=== PATIENT | male | born 1995 | race Caucasian/White ===

== ENCOUNTER 2024-04-10 14:52 | Outpatient (AMB) | payer BC, SELFPAY ==
--- NOTE | 2024-04-10 15:05 | MHC.PC.OV ---
Vital Signs 04/10/24 15:07 Height 6 ft Weight 317 lb BMI 43.0 BP 134/80 Blood Pressure Location Rt brachial Position Sitting Pulse 97 Pulse Source Pulse Oximeter Pulse Oximetry (%) 97 Oxygen Delivery Method Room Air Intake Visit Reasons: Establishing care with new doctor, encounter for Intake Note: Pt is here today as a New Patient to [facility] care Allergies pollen Adverse Reaction (Uncoded 04/10/24 15:23) stuffy nose Medication List - Last Reconciled 04/10/24 by ANABEL Stephenson No Known Home Meds Tobacco use date assessed: 04/10/24 Dental Screening Dental Screen Date: 04/10/24 Did you have a dental visit in the last 12 months?: No Was dental information given to patient?: Patient has dentist HPI HPI Comments History of Present Illness Details Patient is a 29-year-old male who I am meeting for the 1st time. Will obtain records from previous provider. Patient has a past medical history significant for ADHD. He is currently in the process of testing and establishing care with a new psychiatrist. Will draw full panel fasting labs. [facility] Medical History (Updated 04/10/24 @ 15:52 by ANABEL Stephenson) ADHD Surgical History (Updated 04/10/24 @ 15:26 by ANABEL Stephenson) [place] teeth extracted Family History Maternal Grandfather Prostate cancer Social History Housing: House Alcohol intake: current Alcohol intake frequency: holidays/special occasions only Patient Tobacco Use Status: Never used Tobacco e-Cigarette/Vaping Use: Never Used service: No Current occupational status: employed Cognitive needs: No Hearing needs: No Vision needs: Yes Questionnaire PHQ-9 Over the last 2 weeks, how often have you been bothered by any of the following problems? 1. Little interest or pleasure in doing things: not at all 2. Feeling down, depressed, or hopeless: not at all 3. Trouble falling or staying asleep, or sleeping too much: not at all 4. Feeling tired or having little energy: not at all 5. Poor appetite or overeating: not at all 6. Feeling bad about yourself - or that you are a failure or have let yourself or your family down: not at all 7. Trouble concentrating on things, such as reading the newspaper or watching television: not at all 8. Moving or speaking so slowly that other people could have noticed. Or the opposite - being so fidgety or restless that you have been moving around a lot more than usual: not at all 9. Thoughts that you would be better off or of hurting yourself in some way: not at all Total score: 0 Depression Screening Interpretation: Negative Depression Screening Done: Yes 46930 - PHQ-9 Billing: Yes Source: Developed by Drs. Kyler Umanzor, Naye Soliman, Enrique Braga and colleagues, with an educational clark from [employer]. Thrive Questionnaire Date Thrive assessed: 04/10/24 I am a: Patient What is your living situation today?: I have a steady place to live Within the past 12 months, did the food you bought not last and you didn't have the money to get more?: Never true Within the past 12 months, did you worry whether your food would run out before you got money to buy more?: Never true Do you have trouble paying for medicines?: No Do you have trouble getting transportation to medical appointments?: No Do you have trouble paying your heating and electricity bill?: No Do you have trouble taking care of your child, family member or friend?: No Do you have trouble with day-to-day activities such as bathing, preparing meals, shopping, managing finances, etc.?: No Are you currently unemployed and looking for a job?: No Are you interested in more education?: No THRIVE Score: 0 AUDIT C Alcohol Use Questionnaire (AUDIT-C) 1. How often do you have a drink containing alcohol?: Monthly or less 2. How many drinks containing alcohol do you have on a typical day when you are drinking?: 1 or 2 3. How often do you have six or more drinks on one occasion?: Never Total Score: 1 LESLYE-7 AMB Questionnaire LESLYE-7 Date LESLYE - 7 assessed: 04/10/24 Feeling nervous, anxious, or on edge: 0 = Not at all Not being able to stop or control worryin = Not at all Worrying too much about different things: 0 = Not at all Trouble relaxin = Not at all Being so restless that it is hard to sit still: 0 = Not at all Becoming easily annoyed or irritable: 0 = Not at all Feeling afraid as if something awful might happen: 0 = Not at all Total LESLYE-7 score (0-4 normal; 5-9 mild; 10-14 moderate; 15-21 severe): 0 Source: Developed by Drs. Kyler Umanzor, Naye Soliman, Enrique Braga and colleagues, with an educational clark from [employer]. LESLYE-7 Assessment Billing LESLYE-7 Assessment Tool: LESLYE-7 Assessment 45590 Review of Systems Const All systems reviewed & are unremarkable except as noted in HPI and below Denies chills and Denies fever(s) ENT Denies dizziness Card Denies chest pain and Denies dyspnea Resp Denies cough, Denies dyspnea and Denies wheezing GI Denies diarrhea, Denies nausea and Denies vomiting Neuro Denies dizziness Psych Denies homicidal ideation and Denies suicidal ideation Aller/Immun Denies wheezing Physical exam (Primary Care) Vital Signs: Last Vital Signs Pulse 97 04/10/24 15:07 BP 134/80 04/10/24 15:07 Pulse Ox 97 04/10/24 15:07 Oxygen Delivery Method Room Air 04/10/24 15:07 Care Plan Goal for BP management: Patient will take blood pressure measurements at home Next steps: Patient has follow-up in 1 month will return with blood pressure measurements BMI result Body Mass Index 43.0 BMI Assessment/Plan discussion: High Tobacco/Smoking Status: Tobacco use Status Tobacco use date assessed 04/10/24 04/10/24 15:10 Patient Tobacco Use Status Never used Tobacco 04/10/24 15:28 e-Cigarette/Vaping Use Never Used 04/10/24 15:28 PHQ-9: PHQ-9 Score PHQ-9: Total score 0 04/10/24 15:32 Depression Screening Interpretation: Negative Thrive Assessment: Date of Thrive Assessment Date Thrive assessed 04/10/24 04/10/24 15:13 Const General: cooperative and no acute distress Nutritional Appearance: overweight Orientation/consciousness: patient oriented x3 Limitations: no limitations HENMT Head: Yes normal to inspection Eyes General: appearance normal, both eyes and all related structures Resp Auscultation: clear to auscultation bilaterally Cardio Rate: regular rate Rhythm: regular rhythm Heart sounds: S1 normal heart sound present and S2 normal heart sound present Neuro General: patient oriented x3 Extrem Right upper extremity: shoulder/upper arm Details: crepitus Psych Affect: normal affect Attitude: cooperative Thought process: Normal thought process present Thought content: Normal thought content present Insight: Good insight present (Psych) Judgement: Good judgement present (Psych) Assessment and Plan Assessment & Plan (1) Crepitus of right shoulder joint: Comment: Will order patient x-ray. Code(s): M24.811 - Other specific joint derangements of right shoulder, not elsewhere classified (2) ADHD: Comment: Patient has upcoming meeting with Psychiatry and evaluation through testing center for Code(s): F90.9 - Attention-deficit hyperactivity disorder, unspecified type Qualifiers: Attention deficit-hyperactivity disorder type: unspecified Qualified Code(s): F90.9 - Attention-deficit hyperactivity disorder, unspecified type Plan: Patient will follow up in 1 month. (3) Encounter to establish care with new doctor: Code(s): Z76.89 - Persons encountering health services in other specified circumstances Orders: Orders Vitamin D 25-OH (D2 and D3) 04/10/24 Z13.21 - Encounter for screening for nutritional disorder UA CC w/rflx Micro + Cult 04/10/24 Z13.89 - Encounter for screening for other disorder XR shoulder RT min 2V 04/10/24 M24.811 - Other specific joint derangements of right shoulder, not elsewhere classified Vitamin B6 04/10/24 Z13.21 - Encounter for screening for nutritional disorder Vitamin B12 04/10/24 Z13.21 - Encounter for screening for nutritional disorder TSH reflex Free T4 04/10/24 Z13.29 - Encounter for screening for other suspected endocrine disorder Lipid Panel 04/10/24 Z13.220 - Encounter for screening for lipoid disorders Complete Blood Count Auto Diff 04/10/24 Z13.0 - Encounter for screening for diseases of the blood and blood-forming organs and certain disorders involving the immune mechanism Comprehensive Met. Panel 04/10/24 Z91.89 - Other specified personal risk factors, not elsewhere classified Coding Level of Care Code New Pt Level 3 (68140) Diagnoses Crepitus of right shoulder joint M24.811 Attention deficit hyperactivity disorder (ADHD), unspecified ADHD type F90.9 Attention deficit-hyperactivity disorder type: unspecified Encounter to establish care with new doctor Z76.89 Additional Codes LESLYE-7 Assessment Billing - LESLYE-7 Assessment Tool: LESLYE-7 Assessment 62076 ([id number]) Time Spent (min) 26
[2024-04-10 15:07] VITALS: BP 134/80; PULSE 97; O2SAT 97; BMI 43.0
== END 2024-04-10 15:44 | disposition home or self-care (01) ==
PROVIDERS: PCP Nurse Practitioner Primary Care; Visit Provider Nurse Practitioner Primary Care
DX: M24.811 Other specific joint derangements of right shoulder, not elsewhere classified (principal); F90.9 Attention-deficit hyperactivity disorder, unspecified type; Z76.89 Persons encountering health services in other specified circumstances
CPT/HCPCS: 99203

== ENCOUNTER 2024-05-06 12:54 | Outpatient (REF) | payer BC, SELFPAY ==
[2024-05-06 16:01] LABS: MANUAL DIFF FLAG NO
[2024-05-06 16:03] LABS: Appearance Urine Turbid; Color Urine Yellow; Glucose Urine UA Negative (Negative); Leukocyte Esterase Urine Negative (Negative); Nitrite Urine Negative (Negative); Urine Blood Negative (Negative); Urine Ketones Negative (Negative); Urine Protein Negative (Neg-Trace)
[2024-05-06 16:13] LABS: Basophils Absolute Auto 0.1 X10*3/uL (0.0-0.2); Basophils Percent Auto 0.6 % (0-2); Eosinophils Absolute Auto 0.9 X10*3/uL (0.0-0.4); Eosinophils Percent Auto 7.7 % (0-4); Hematocrit 44.4 % (42.0-52.0); Hemoglobin 14.8 g/dl (14.0-18.0); Imm Gran Abs Auto 0.06 X10*3/uL (0.00-0.03); Imm Gran Pct Auto 0.5 % (0.0-0.4); Lymphocytes Absolute Auto 2.8 X10*3/uL (1.2-4.9); Lymphocytes Percent Auto 25.2 % (20-40); Mean Corpuscular HGB Conc 33.3 g/dl (31.0-36.0); Mean Corpuscular Hemoglobin 28.7 pg (27.0-33.0); Mean Platelet Volume 10.9 fL (9.4-12.4); Monocytes Absolute Auto 0.9 X10*3/uL (0.1-1.2); Monocytes Percent Auto 8.3 % (2-11); Neutrophils Absolute Auto 6.4 x10*3/uL (2.0-8.3); Neutrophils Percent Auto 57.7 % (45-73); Platelet Count 333 X10*3/uL (160-400); Red Blood Count 5.16 X10*6/uL (4.60-5.80); Red Cell Distribution Width 12.6 % (11.0-16.0)
[2024-05-06 16:31] LABS: Alanine Aminotransferase 31 U/L (0-40); Albumin Level 4.4 g/dL (3.5-5.0); Alkaline Phosphatase 42 U/L (39-117); Anion Gap 13 (12-20); Aspartate Amino Transferase 24 U/L (5-37); Bilirubin Total 0.6 mg/dL (0.0-1.0); Blood Urea Nitrogen 14 mg/dL (9-16); Calcium 9.3 mg/dL (8.4-10.2); Carbon Dioxide 24 mmol/L (22-29); Chloride 105 mmol/L (96-108); Cholesterol 189 mg/dL (<200); Estimated Glomerular Filt Rate > 60; Glucose Random 86 mg/dL (60-115); HDL Cholesterol 36 mg/dL (>40); LDL Cholesterol Calculated 124 mg/dL (<100); Potassium 4.4 mmol/L (3.3-5.1); Sodium 138 mmol/L (135-145); Total Protein 8.2 g/dL (6.5-8.0); Triglycerides 148 mg/dL (<150)
[2024-05-06 16:48] LABS: TSH reflex Free T4 2.98 uIU/mL (0.32-4.0)
[2024-05-06 17:11] LABS: Vitamin B12 333 pg/mL (200-900)
[2024-05-10 14:58] LABS: Vitamin D 25-OH, D2 <4 ng/mL; Vitamin D 25-OH, D3 10 ng/mL; Vitamin D 25-OH, Total 10 ng/mL (30-100)
[2024-05-11 13:34] LABS: Vitamin B6 7.1 ng/mL (2.1-21.7)
== END 2024-05-06 12:55 | disposition home or self-care (01) ==
LOC: HO.HMGCLDS 12:54
PROVIDERS: PCP Internal Medicine; Visit Provider Nurse Practitioner Primary Care
DX: Z13.21 Encounter for screening for nutritional disorder (principal); Z13.89 Encounter for screening for other disorder; Z13.220 Encounter for screening for lipoid disorders; Z13.29 Encounter for screening for other suspected endocrine disorder; Z13.0 Encounter for screening for diseases of the blood and blood-forming organs and certain disorders involving the immune mechanism; Z91.89 Other specified personal risk factors, not elsewhere classified
CPT/HCPCS: 36415; 80053; 80061; 81003; 82306; 82607; 84207; 84443; 85025

== ENCOUNTER 2024-05-15 15:25 | Outpatient (AMB) | payer BC, SELFPAY ==
--- NOTE | 2024-05-15 15:26 | MHC.PC.OV ---
Vital Signs 05/15/24 15:27 Height 6 ft Weight 317 lb BMI 43.0 BP 116/80 Blood Pressure Location Rt brachial Position Sitting Pulse 66 Pulse Source Pulse Oximeter Pulse Oximetry (%) 98 Oxygen Delivery Method Room Air Intake Visit Reasons: lab follow up Intake Note: pt is here for lab follow up Allergies pollen Adverse Reaction (Uncoded 05/15/24 15:54) stuffy nose Medication List - Last Reconciled 05/15/24 by ANABEL Stephenson meloxicam 15 mg PO DAILY prednisone 40 mg (2 x 20 mg) PO DAILY Tobacco use date assessed: 05/15/24 Dental Screening Dental Screen Date: 04/10/24 HPI HPI Comments History of Present Illness Details Patient is a 29-year-old male in today for a lab follow-up. Recent lab draw revealed the patient is on vitamin-D, he will be instructed to take vitamin D3 2000 units daily and will have this redrawn in 3 months. Patient has also been instructed that he can get vitamin-D from the sunlight, but should be careful not to have over exposure. Should use appropriate sunscreens. Patient was also found to have elevated LDL and reduced HDL. No medication intervention at this time however patient did utilize exercise and improved diet. He can also utilize Marine or oil supplement Patient also has a complaint of right hip pain x2 weeks. Patient states that he was in a long car drive in developed discomfort in his right hip/lower back with pain radiating into his right leg. The pain has gotten progressively better over the past 2 weeks however it is still present. Patient has SI tenderness on physical exam. Will order SI x-ray, will give short course of prednisone and meloxicam. [facility] Medical History ADHD Surgical History [place] teeth extracted Family History Maternal Grandfather Prostate cancer Social History Housing: House Alcohol intake: current Alcohol intake frequency: holidays/special occasions only Patient Tobacco Use Status: Never used Tobacco e-Cigarette/Vaping Use: Never Used service: No Current occupational status: employed Cognitive needs: No Hearing needs: No Vision needs: Yes Questionnaire Thrive Questionnaire Date Thrive assessed: 04/10/24 AUDIT C Alcohol Use Questionnaire (AUDIT-C) 1. How often do you have a drink containing alcohol?: Monthly or less 2. How many drinks containing alcohol do you have on a typical day when you are drinking?: 1 or 2 3. How often do you have six or more drinks on one occasion?: Never Total Score: 1 Score Reviewed/Action Taken: Yes LESLYE-7 AMB Questionnaire LESLYE-7 Date LESLYE - 7 assessed: 04/10/24 Source: Developed by Drs. Kyler Umanzor, Naye Soliman, Enrique Braga and colleagues, with an educational clark from [employer]. Review of Systems Const All systems reviewed & are unremarkable except as noted in HPI and below Physical exam (Primary Care) Vital Signs: Last Vital Signs Pulse 66 05/15/24 15:27 BP 116/80 05/15/24 15:27 Pulse Ox 98 05/15/24 15:27 Oxygen Delivery Method Room Air 05/15/24 15:27 BMI result Body Mass Index 43.0 Tobacco/Smoking Status: Tobacco use Status Tobacco use date assessed 05/15/24 05/15/24 15:32 Patient Tobacco Use Status Never used Tobacco 05/15/24 15:32 e-Cigarette/Vaping Use Never Used 05/15/24 15:32 Thrive Assessment: Date of Thrive Assessment Date Thrive assessed 04/10/24 05/15/24 15:32 Const Other: Appearance: Alert.? Oriented X3.? No acute distress.? Head: Normocephalic, atraumatic, no step-offs or deformities Eyes: Pupils equal, round and reactive to light.? ENT: Pharynx normal.? Neck: Normal inspection.? Neck supple.? CVS: Normal heart rate and rhythm.? Pulses normal.? Respiratory: No respiratory distress.? Breath sounds normal.? Abdomen: Soft and nontender.? Skin: Skin warm and dry.? Normal skin color.? Normal skin turgor.? Extremities: No lower extremity edema.? No calf ttp. 5/5 strength to bilateral upper and lower extremities Back: No midline tenderness, no C-spine tenderness, full range of motion, no CVA tenderness bilaterally. +right SI tenderness. Neuro: Oriented X 3.? No motor deficit.? No sensory deficit. CN 2-12 intact Results Reviewed Results Reviewed: Vit D, 25-OH D2 <4 ng/mL This test was developed and its analytical performance characteristics have been determined by [facility] [place], [place]. It has not been cleared or approved by the U.S. Food and Drug Administration. This assay has been validated pursuant to the CLIA regulations and is used for clinical purposes. THIS TEST WAS PERFORMED AT: [facility]/[address] DONATO DOHERTY MD,PHD Vit D, 25-OH D3 10 ng/mL This test was developed and its analytical performance characteristics have been determined by [facility] [place], [place]. It has not been cleared or approved by the U.S. Food and Drug Administration. This assay has been validated pursuant to the CLIA regulations and is used for clinical purposes. Vit D 25-OH Tot 10 L 30-100 ng/mL Vitamin D, 25-Hydroxy reports concentrations of two common forms, 25-OHD2 and 25-OHD3. 25-OHD3 indicates both endogenous production and supplementation. 25-OHD2 is an indicator of exogenous sources such as diet or supplementation. Therapy is based on measurement of Total 25-OHD, with levels <20 ng/mL indicative of Vitamin D deficiency, while levels between 20 ng/mL and 30 ng/mL suggest insufficiency. Optimal levels are > or = 30 ng/mL. For additional information, please refer to http://education.Grabbed/faq/TTP599 (This link is being provided for informational/ educational purposes only.) Sodium 138 135-145 mmol/L Potassium 4.4 3.3-5.1 mmol/L CL 105 96-108 mmol/L CO2 24 22-29 mmol/L Gap 13 12-20 BUN 14 9-16 mg/dL Creat 0.92 0.5-1.4 mg/dL EGFR > 60 NOTE: For -[place] individuals, multiply the result by 1.210. Chronic Kidney Disease: Estimated GFR < 60 mL/min/1.73m2 Severe Kidney Disease: Estimated GFR < 15 mL/min/1.73m2 Glucose, Random 86 60-115 mg/dL CA 9.3 8.4-10.2 mg/dL Total Bili 0.6 0.0-1.0 mg/dL AST (GOT) 24 5-37 U/L ALT (GPT) 31 0-40 U/L Protein, Total 8.2 H 6.5-8.0 g/dL Alb 4.4 3.5-5.0 g/dL Triglyceride 148 <150 mg/dL Desirable Triglyceride: less than 150 mg/dL Borderline High Triglyceride 150-199 mg/dL High Triglyceride: 200-499 mg/dL Very High Triglyceride: greater than or equal to 5OO mg/dL Cholesterol 189 <200 mg/dL Desirable Cholesterol: less than 200 mg/dL Borderline High Cholesterol: 200-239 mg/dL High Cholesterol: greater than 239 mg/dL LDL Calculated 124 H <100 mg/dL Desirable LDL: less than 100 mg/dL Near Optimal/Above Optimal LDL: 110-129 mg/dL Borderline High LDL: 130-159 mg/dL High LDL: 160-189 mg/dL Very High LDL: greater than or equal to 190 mg/dL HDL 36 L >40 mg/dL Desirable HDL: greater than 40 mg/dL Note: This HDL assay may give artificially low results in patients with liver disease. Alk Phos 42 39-117 U/L TSH 2.98 0.32-4.0 uIU/mL Assessment and Plan Assessment & Plan (1) Chronic SI joint pain: Comment: Patient will be given meloxicam and prednisone. Will also order SI x-ray. Patient has been instructed on the side effects of these medications and take them properly. Patient has been educated he will likely need physical therapy if problem persists. Code(s): M53.3 - Sacrococcygeal disorders, not elsewhere classified; G89.29 - Other chronic pain (2) Vitamin D deficiency: Comment: Patient has been instructed to take Vitamin D3 2000 units per day for the next three months. Will redraw levels in 3 months. Code(s): E55.9 - Vitamin D deficiency, unspecified (3) Hyperlipidemia: Comment: Patient instructed to improve diet and increase exercise. Can also utilize Marine oil supplement. Code(s): E78.5 - Hyperlipidemia, unspecified Qualifiers: Hyperlipidemia type: unspecified Qualified Code(s): E78.5 - Hyperlipidemia, unspecified Plan: Will follow-up with x-ray results Orders: Orders XR sacroiliac joint 1-2V 05/15/24 G89.29 - Other chronic pain, M53.3 - Sacrococcygeal disorders, not elsewhere classified Medications: New prednisone 40 mg (2 x 20 mg) PO DAILY 10 tabs 0RF meloxicam 15 mg PO DAILY 20 tabs 0RF Coding Level of Care Code Est Pt Level 3 (24825) Diagnoses Chronic SI joint pain M53.3; G89.29 Vitamin D deficiency E55.9 Hyperlipidemia, unspecified hyperlipidemia type E78.5 Hyperlipidemia type: unspecified Time Spent (min) 26
[2024-05-15 15:27] VITALS: BP 116/80; PULSE 66; O2SAT 98; BMI 43.0
== END 2024-05-15 16:03 | disposition home or self-care (01) ==
LOC: HO.HMGC 15:25
PROVIDERS: PCP Internal Medicine; Visit Provider Nurse Practitioner Primary Care
DX: M53.3 Sacrococcygeal disorders, not elsewhere classified (principal); G89.29 Other chronic pain; E55.9 Vitamin D deficiency, unspecified; E78.5 Hyperlipidemia, unspecified
CPT/HCPCS: 99213

== ENCOUNTER 2024-05-16 11:23 | Outpatient (REF) | payer BC, SELFPAY ==
--- NOTE | ~2024-05-16 | XR_ITS ---
EXAMINATION: XR SACROILIAC JOINTS CLINICAL INFORMATION: Sacrococcygeal disorders not otherwise specified COMPARISON: None available. TECHNIQUE: 3 views of the sacroiliac joints FINDINGS: Bone mineralization is normal. Small calcification in the left hemipelvis, possibly vascular. Mild degenerative changes in the bilateral sacroiliac joints with mild hypertrophic change. XR/XR sacroiliac joint 1-2V IMPRESSION: Mild degenerative changes in the bilateral sacroiliac joints.
== END 2024-05-16 11:24 | disposition home or self-care (01) ==
LOC: HO.HMGCX 11:23
PROVIDERS: PCP Internal Medicine; Visit Provider Nurse Practitioner Primary Care
DX: M53.3 Sacrococcygeal disorders, not elsewhere classified (principal); G89.29 Other chronic pain
CPT/HCPCS: 72200

== ENCOUNTER 2024-11-12 11:51 | Outpatient (AMB) | payer BC, SELFPAY ==
--- OUTSIDE RECORDS SUMMARY | 2024-11-12 11:53 | XMS_ITS | Patient Health Record ---
Author Organization [facility] Address [address] [place] [address] Care Team Providers Care Manager Heart Failure Name Role Phone Keaton Peter MD Primary Care Provider Carl Berrios [phone] Allergies Allergen (clinical drug ingredient) Drug/Non Drug Allergy documented on EMR Reaction Allergy Type Onset Date Status Seasonale Unknown Drug Allergy Active Reason For Referral No Information Medications Medication SIG (Take, Route, Frequency, Duration) Notes Start Date End Date Status Augmentin 500-125 MG 1 tablet Orally jacquelyn ry 8 hrs for 10 days Not-Taking Social History Tobacco Use: Social History Observation Description Date Details (start date - stop date) Never Smoker NA - NA Tobacco Use/Smoking Question Answer Notes Are you a: nonsmoker Additional Findings: Tobacco Non-User Current no n-smoker Alcohol Screen Question Answer Notes Did you have a drink containing alcohol in the p ast year? No Points 0 Interpretation Negative Tobacco use other than smoking: Question Answer Notes Are you an other tobacco user? 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
[2024-11-12 12:19] VITALS: BP 110/72; PULSE 95; O2SAT 96; BMI 44.3
--- NOTE | 2024-11-12 12:19 | A.OFFPC_ITS ---
Vital Signs 11/12/24 12:19 Height 6 ft Weight 327 lb BMI 44.3 BP 110/72 Blood Pressure Location Rt brachial Position Sitting Pulse 95 Pulse Source Pulse Oximeter Pulse Oximetry (%) 96 Oxygen Delivery Method Room Air Intake Visit Reasons: 6-8 month follow up/transfer from [facility] Intake Note: Pt is here today for his 6-8mo. f/u/ transfer from [facility]/ c/o ?abscess behind the Rt knee Allergies pollen Adverse Reaction (Uncoded 11/12/24 12:43) stuffy nose Medication List - Last Reconciled 11/12/24 by Leigh Ann Fair MD cholecalciferol (vitamin D3) 50 mcg PO DAILY loratadine (Claritin) 10 mg PO DAILY Tobacco use date assessed: 11/12/24 Dental Screening Dental Screen Date: 04/10/24 Did you have a dental visit in the last 12 months?: Yes Did you have a dental problem in the last 6 months where you did not have access to dental care?: Yes Was dental information given to patient?: Patient has dentist HPI 6-8 month follow up/transfer from [facility] HPI Details 29-year-old male, here to establish care with new PCP and have lesion on the back of his right knee checked. Patient states that he was seen recently at the urgent care clinic and treated for cellulitis in right lower extremity with complete resolution of redness, swelling and pain over site. He however still feels a small lump left behind and would like to get it checked. - has Allergic rhinitis, specifically to pollen, not severe. No medication currently taken besides Claritin. - Weight management: No history of diabe betsy. Gained 10 pounds since April despite diet and exercise efforts. - Vitamin D level noted as 10 ng/mL prev iously. Currently taking vitamin D supplements, approx. 2000 IU daily. [facility] Medical History (Updated 11/14/24 @ 00:11 by Leigh Ann Fair MD) Morbid obesity ADHD Surgical History [place] teeth extracted Family History Maternal Grandfather Prostate cancer Social History Housing: House Alcohol intake: current Alcohol intake frequency: holidays/special occasions only Patient Tobacco Use Status: Never used Tobacco e-Cigarette/Vaping Use: Never Used service: No Current occupational status: employed Cognitive needs: No Hearing needs: No Vision needs: Yes Questionnaire PHQ-9 Over the last 2 weeks, how often have you been bothered by any of the following problems? 1. Little interest or pleasure in doing things: not at all 2. Feeling down, depressed, or hopeless: not at all 3. Trouble falling or staying asleep, or sleeping too much: several days 4. Feeling tired or having little energy: not at all 5. Poor appetite or overeating: not at all 6. Feeling bad about yourself - or that you are a failure or have let yourself or your family down: not at all 7. Trouble concentrating on things, such as reading the newspaper or watching television: not at all 8. Moving or speaking so slowly that other people could have noticed. Or the opposite - being so fidgety or restless that you have been moving around a lot more than usual: not at all 9. Thoughts that you would be better off or of hurting yourself in some way: not at all Total score: 1 Source: Developed by Drs. Kyler Umanzor, Naye Soliman, Enrique Braga and colleagues, with an educational clark from [employer]. Thrive Questionnaire Date Thrive assessed: 11/05/24 I am a: Patient What is your living situation today?: I have a steady place to live Within the past 12 months, did the food you bought not last and you didn't have the money to get more?: Never true Within the past 12 months, did you worry whether your food would run out before you got money to buy more?: Never true Do you have trouble paying for medicines?: No Do you have trouble getting transportation to medical appointments?: No Do you have trouble paying your heating and electricity bill?: No Do you have trouble taking care of your child, family member or friend?: No Do you have trouble with day-to-day activities such as bathing, preparing meals, shopping, managing finances, etc.?: No Are you currently unemployed and looking for a job?: No Are you interested in more education?: Yes Please select the resources that you would like help with: None Currently or been in a relationship where the following occur: No concerns reported THRIVE Score: 0 AUDIT C Alcohol Use Questionnaire (AUDIT-C) 1. How often do you have a drink containing alcohol?: Monthly or less 2. How many drinks containing alcohol do you have on a typical day when you are drinking?: 1 or 2 3. How often do you have six or more drinks on one occasion?: Never Total Score: 1 LESLYE-7 AMB Questionnaire LESLYE-7 Date LESLYE - 7 assessed: 04/10/24 Feeling nervous, anxious, or on edge: 1 = Several days Not being able to stop or control worryin = Not at all Worrying too much about different things: 1 = Several days Trouble relaxin = Not at all Being so restless that it is hard to sit still: 2 = More than half the days Becoming easily annoyed or irritable: 1 = Several days Feeling afraid as if something awful might happen: 0 = Not at all Total LESLYE-7 score (0-4 normal; 5-9 mild; 10-14 moderate; 15-21 severe): 5 Source: Developed by Drs. Kyler Umanzor, Naye Soliman, Enrique Braga and colleagues, with an educational clark from [employer]. Review of Systems Const All systems reviewed & are unremarkable except as noted in HPI and below Physical exam (Primary Care) Vital Signs: Last Vital Signs Pulse 95 11/12/24 12:19 BP 110/72 11/12/24 12:19 Pulse Ox 96 11/12/24 12:19 Oxygen Delivery Method Room Air 11/12/24 12:19 BMI result Body Mass Index 44.3 Tobacco/Smoking Status: Tobacco use Status Tobacco use date assessed 11/12/24 11/12/24 12:21 Patient Tobacco Use Status Never used Tobacco 11/12/24 12:21 e-Cigarette/Vaping Use Never Used 11/12/24 12:21 PHQ-9: PHQ-9 Score PHQ-9: Total score 1 11/12/24 12:53 Thrive Assessment: Date of Thrive Assessment Date Thrive assessed 11/05/24 11/12/24 12:21 Currently or been in a relationship where the following occur: No concerns repor brianna Const General: no acute distress and alert Orientation/consciousness: patient oriented x3 Limitations: no limitations HENMT Mouth: oropharynx normal and moist mucous membranes Eyes General: appearance normal, both eyes and all related structures Neck Neck: Yes full ROM, Yes no lymphadenopathy and Yes supple Resp Effort & Inspection: normal respiratory effort and able to speak in complete sentences Auscultation: clear to auscultation bilaterally Cardio Rate: regular rate Rhythm: regular rhythm Heart sounds: S1 normal heart sound present and S2 normal heart sound present GI Palpation (GI): Soft to palpation, nontender and no masses Auscultation: normal bowel sounds Back/Spine/Pelvis Back: No back tenderness Skin Other: Small firm nontender nodular lesion just above right popliteal fossa, no redness no increased warmth, nontender Neuro General: patient oriented x3, gait normal, tone normal, moves all extremities, Normal light touch and pain sensation and no focal motor deficits Cognition (Neuro): normal cognition Extrem General: Yes full ROM, Yes no joint enlargement, Yes no clubbing, cyanosis or edema and Yes no calf tenderness Psych Appearance: grossly normal and well kempt Mental Status: mental status grossly normal Speech and movement: Normal speech and movement present Affect: normal affect Attitude: cooperative Thought process: Normal thought process present Thought content: Normal thought content present Coding Level of Care Code Est Pt Level 3 (25196) Diagnoses Morbid obesity E66.01 Skin lesion L98.9 Assessment & Plan Assessment & Plan (1) Morbid obesity: Code(s): E66.01 - Morbid (severe) obesity due to excess calories Category: Medical (2) Skin lesion: Code(s): L98.9 - Disorder of the skin and subcutaneous tissue, unspecified Plan I discussed with the patient that the previously inflamed area behind the knee, diagnosed as cellulitis, now appears to be scar tissue without current symptoms. We agreed on continuing to observe for any changes in size or discomfort. For weight management, emphasis on proper insurance consultation for medication coverage was advised, as he is not diabetic and may face coverage challenges. I reiterated the significance of combining any pharmacological intervention with lifestyle modifications. We also discussed correcting his vitamin D deficiency with ongoing supplements. Concerning immunizations, I stressed the need for verifying flu and COVID-19 vaccines and considering a Tdap update given his occupational exposure.
== END 2024-11-12 12:56 | disposition home or self-care (01) ==
PROVIDERS: PCP Internal Medicine; Visit Provider Internal Medicine
DX: L98.9 Disorder of the skin and subcutaneous tissue, unspecified (principal); E66.01 Morbid (severe) obesity due to excess calories; Z68.41 Body mass index [BMI] 40.0-44.9, adult

== ENCOUNTER → 2024-11-12 11:51 | Outpatient (BNVA) | payer BC, SELFPAY | PROVIDERS: PCP Internal Medicine; Visit Provider Internal Medicine ==

== ENCOUNTER 2025-10-07 14:55 | Outpatient (AMB) | payer BC, SELFPAY ==
[2025-10-07 14:59] VITALS: BP 128/86; PULSE 86; TEMP 36.8; O2SAT 96
--- NOTE | 2025-10-07 14:59 | AM.OFFWIN_ITS ---
Intake Vital Signs 10/07/25 14:59 Height 6 ft BP 128/86 Blood Pressure Location Rt brachial Position Sitting Pulse 86 Pulse Source Pulse Oximeter Temp 98.3 F Temp Source Oral Pulse Oximetry (%) 96 Oxygen Delivery Method Room Air Intake Visit Reasons: EP cough, chest discomfort Intake Note: Patient presents c/o cough, SOB x1 week. Patient was treated for walking pneumonia earlier this month & last. Patient Tobacco Use Status: Never used Tobacco Allergies pollen Adverse Reaction (Uncoded 10/07/25 15:03) stuffy nose Medication List - Last Reconciled 10/07/25 by Maki Nunez PA-C atomoxetine 80 mg PO QAM loratadine (Claritin) 10 mg PO DAILY HPI HPI Comments History of Present Illness Details History - The patient is a 30-year-old male pres enting with persistent respiratory symptoms following a previous diagnosis of pneumonia. - The patient initially experienced bhakti re coughing with mucus production and vomiting, leading to an urgent care visit where pneumonia was suspected despite a negative chest x-ray. - The patient was treated with antibioti cs and experienced some improvement. - Upon returning to work, symptoms worse benson, prompting a return to urgent care where the diagnosis was amended to walking pneumonia, and additional treatments including prednisone and an inhaler were prescribed. - The patient reports improvement but no betsy occasional wheezing and coughing, particularly with cold weather and dry air. - The patient denies a history of asthma or COPD and reports no current medication use. - The patient experienced a sore throat and dry cough upon waking, which improved with hydration, and attributes some symptoms to allergic rhinitis due to pollen exposure. Feels better today but wanted an exam. - Stopped using a space heater last h t which seemed to stop his cough. [facility] Medical History (Updated 10/07/25 @ 15:27 by Maki Nunez PA-C) Morbid obesity ADHD Surgical History [place] teeth extracted Family History Maternal Grandfather Prostate cancer Social History Housing: House Alcohol intake: current Alcohol intake frequency: holidays/special occasions only Patient Tobacco Use Status: Never used Tobacco e-Cigarette/Vaping Use: Never Used service: No Current occupational status: employed Cognitive needs: No Hearing needs: No Vision needs: Yes Review of Systems Narrative Review of Systems - Respiratory: Reports intermittent wheezing and coughing, particularly with cold weather. Denies current shortness of breath. - ENT: Reports sore throat and dry throat upon waking. Denies ear or sinus pain. All systems reviewed and are unremarkable except as noted in HPI Physical Exam Exam Exam: Physical Exam General: Cooperative, healthy appearing, comfortable and no acute distress Orientation/consciousness: Patient oriented x3 Limitations: No limitations Head: Normal to inspection Ears: Hearing grossly normal bilaterally, external ears normal, EAC's normal bilaterally and TM's normal bilaterally Nose: Normal external nose present, Normal nares present and No nasal discharge present Face and sinus: Normal facial exam and sinuses nontender Mouth: Normal oral and palatal mucosa present and moist mucous membranes Throat: Tonsils normal, no exudates, uvula midline, posterior oropharynx erythema, still pretty red back there Eyes: Appearance normal, both eyes and all related structures Neck: Normal visual inspection, full ROM Respiratory: Clear to auscultation bilaterally. Normal respiratory effort, able to speak in complete sentences, actively coughing, no respiratory distress, not tachypneic, no tripod positioning and no use of accessory muscles. Occasional slight wheeze noted. Cardiovascular: Regular rate and rhythm. Normal S1 and S2 Skin: No rashes or lesions noted Neuro: Patient oriented x3 Extremities: Normal to inspection and Yes no clubbing, cyanosis or edema Vital Signs: Last Vital Signs Temp 98.3 F 10/07/25 14:59 Pulse 86 10/07/25 14:59 BP 128/86 10/07/25 14:59 Pulse Ox 96 10/07/25 14:59 Oxygen Delivery Method Room Air 10/07/25 14:59 Assessment & Plan Assessment & Plan (1) Viral URI with cough: Code(s): J06.9 - Acute upper respiratory infection, unspecified Plan: Patient was informed and verbally consented to the use of an ambient scribe for clinic note documentation during this visit. - VSS, pt well appearing and PE unremarkable. - Continue monitoring symptoms and use inhaler as needed for wheezing. - Consider decongestants or allergy medications to manage residual symptoms. - No further antibiotics required as symptoms are improving and consistent with viral etiology. - Encourage hydration and rest to support recovery. - Consider using a humidifier to alleviate symptoms exacerbated by dry air. Coding Level of Care Code Est Pt Level 3 (06966) Diagnoses Viral URI with cough J06.9
--- OUTSIDE RECORDS SUMMARY | 2025-10-08 12:53 | XMS_ITS | Patient Health Record ---
Author Organization [facility] Jadyn rivera Burns Address [address] [place] [address] Care Team Providers Care Software Analyst Name Role Phone Manjula AUSTIN, Leigh Ann Monae Primary Care Provider Un available Rodolfo Arnett Unavailable [phone] Allergies Allergen (clinical drug ingredient) Drug/Non Drug Allergy documented on EMR Reaction Allergy Type Onset Date Status Seasonale Unknown Drug Allergy Active Reason For Referral Diagnosis 1 Ingrowing nail (L60. 0) Diagnosis 2 Cellulitis of left t oe (L03.032) Diagnosis 3 Skin disease (L98.9) Diagnosis 4 Cutaneous abscess of left foot (L02.612) Diagnosis 5 Non-pressure chronic ulcer of other part of left foot limited to breakdown of skin (L97.521) Diagnosis 6 Pain in right toe(s) (M79.674) Referring Provider First Name Leigh Ann Grossman Referring Provider Last Name Manjula Referring Provider Speciality Internal M edicine Referred Organization [facility] Referred Provider Rodolfo Arnett Referred Address [address] [facility],[place], [place],[address], Referred Provider Specialty Podiatry Referral Priority Routine Medications Medication SIG (Take, Route, Fr equency, Duration) Notes Start Date End Date Status Cephalexin 500 MG 1 capsule Orally Thr ee times a day; Duration: 10 days Active Work Note-Appointment . . . [facility]; Duration: . 04/11/2025 Active Social History Tobacco Use: Social History Observation Description Date Details (start date - stop date) Never Smoker NA - NA Tobacco use other than smoking: Question Answer Notes Are you an other tobacco user? No Tobacco Control (Standard) Question Answer Notes Tobacco use: Nonsmoker Additional Findings: Tobacco non-user Current no nsmoker AUDIT-C (Standard) Question Answer Notes Did you have a drink containing alcohol in the p ast year? No Points 0 Interpretation Negative Problems Problem Type SNOMED Code ICD Code Onset Dates Problem Status W/U Status Risk Notes Problem Non-pressure chronic ulcer of other part of left foot limited to breakdown of skin (L97.521) Active confirmed Vital Signs Blood pressure diastolic 70 mm Hg 04/11/2025 Height 6 ft in 04/11/2025 Blood pressure systolic 130 mm Hg 04/11/2025 Weight 310 lbs 04/11/2025 BMI 42.04 kg/m2 04/11/2025 Procedures Procedure Date Ordered Date Performed Result Body Sit e 05396-Vmpezywl Plate 04/11/2025 N/A Encounters Encounter Location Date Provider Diagnosis [facility] [place] [address] [place] [address] 04/11/2025 Rodolfo Melquiades Ingrown nail L60.0 ; Cellulitis of toe of right foot L03.031 and Pain in right toe(s) M79.674 Assessments Encounter Date Diagnosis (ICD Code) Assessment Notes Treatment Notes Treatment Clinical Notes Section Notes 04/11/2025 Ingrown nail (ICD-10 - L60.0) 04/11/2025 Cellulitis of toe of right foot (ICD-10 - L03.031) 04/11/2025 Pain in right toe(s) (ICD-10 - M79.674) Plan Of Treatment Pending Test Test Name Order Date [id number]-Zuikvszr Plate 04/11/2025 75939 I&D ABSCESS- SIMPLE,SINGLE 021 Insurance Providers Payer Name Payer Address Payer Phone Subscriber Number Group Number Insured Name Patient Relationship to Insured Coverage Start Date Coverage End Date [facility] [address] [place] [address] [id number] Boo Ayon Self - patient is the insured Medical (General) History Medical History History ICD Code Broken bones Headaches/Migraines Surgical History Surgery Date(Month/Year) wisdom teeth extraction 2008
--- OUTSIDE RECORDS SUMMARY | 2025-10-08 12:55 | XMS_ITS | Clinical Summary ---
Author Organization [facility] Address [address] [place] [phone] Phone Care Team Providers Care Biomedical Instrument Technician Name Role Phone Leigh Ann Fair MD Primary Care Provider Medications No known medications Active Problems No known active problems Immunizations Immunization Administration Dates Next Due INFLUENZA, SPLIT VIRUS, TRIVALENT PF 08/17/2018 INFLUENZA, SPLIT VIRUS, TRIVALENT W/ PRESERVATIV E IM 08/22/2016 Influenza Quadrivalent Preservative Free IM 08/21 Influenza Quadrivalent w/ Preservative IM 2018 PPD Test 08/25/2021 Social History Tobacco Use Types Packs/Day Years Used Date Smoking Tobacco: Never Assessed Education Answer Date Recorded Are you interested in more education? Not on rose e 03/18/2023 Are you concerned about learning? Not on file 03/18/2023 No 03/18/2023 No 03/18/2023 Digital Access Answer Date Recorded No 04/16/2023 No 04/16/2023 Reliable internet access at home? Not on file 04/16/2023 Device with a working camera? Not on file Sex and Gender Information Value Date Recorded Sex Assigned at Not on file Legal Sex Male 12:53 PM EDT Gender Identity Not on file Sexual Orientation Not on file Plan of Treatment Health Maintenance Due Date Last Done Comments Adult Td,Tdap Booster 1994 DEPRESSION SCREENING 2006 SMOKING Hx and SMOKELESS TOBACCO SCREENING 2007 HEPATITIS C SCREENING 2012 HIV ONE-TIME SCREENING (18-65 YEARS) 2012 INFLUENZA VACCINE (#1) 2025 , 08/31/2019, 08/17/2018, Additional history exists COVID-19 VACCINE (2024- season) 2025 09/15/2023, 09/02/2021, 02/24/2021, Additional history exists HEPATITIS A VACCINES Aged Out No long er eligible based on patient's age to complete this topic HIB VACCINES Aged Out No longer eligi ble based on patient's age to complete this topic MENINGOCOCCAL VACCINES (ACWY) Aged Out No longer eligible based on patient's age to complete this topic MENINGOCOCCAL VACCINES (B) Aged Out N o longer eligible based on patient's age to complete this topic PNEUMOCOCCAL VACCINES (0-49 years) Aged Out No longer eligible based on patient's age to complete this topic Medical Devices Not on file [place] [address] [place] [id number] [place] [address] [place] [address] [place] [id number] Care Teams Biomedical Instrument Technician Relationship Specialty Start Date End Date Leigh Ann Fair MD [facility] [place] [address] PCP - General Internal Medicine 08/19/21 Additional Source Comments The information contained in this document represents components of the legal health record. It is not the complete legal health record.[facility]
== END 2025-10-07 15:39 | disposition home or self-care (01) ==
PROVIDERS: PCP Internal Medicine; Visit Provider Physician Assistant
DX: J06.9 Acute upper respiratory infection, unspecified (principal)

== ENCOUNTER 2025-11-03 12:45 | Outpatient (AMB) | payer BC, SELFPAY ==
[2025-11-03 13:33] VITALS: BP 116/74; PULSE 98; TEMP 36.6; O2SAT 98; BMI 39.5
--- NOTE | 2025-11-03 13:33 | AM.OFFWIN_ITS ---
Intake Vital Signs 11/03/25 13:33 Height 6 ft Weight 291 lb BMI 39.5 BP 116/74 Blood Pressure Location Lt brachial Position Sitting Pulse 98 Pulse Source Pulse Oximeter Temp 97.9 F Temp Source Oral Pulse Oximetry (%) 98 Oxygen Delivery Method Room Air Intake Visit Reasons: eP right shoulder pain Intake Note: pt presents with worsening RT shoulder, clavicle and scapula pain for 4 days. pt reports h/o of RCT years ago Patient Tobacco Use Status: Never used Tobacco Allergies pollen Adverse Reaction (Uncoded 11/03/25 13:44) stuffy nose Medication List - Last Reconciled 11/03/25 by Bev Sarmiento NP atomoxetine 80 mg PO QAM fexofenadine (Flory Allergy) 180 mg PO DAILY PRN loratadine (Claritin) 10 mg PO DAILY PRN Do you need a note to return to daycare/school/sports/work: Yes HPI HPI Comments History of Present Illness Details 30-year-old male patient presents to the walk-in clinic with complaints of worsening right shoulder, clavicle, and scapular pain for the past 4 days. Patient reports a history of a rotator cuff tendon tear several years ago. He describes the pain as persistent and aggravated with range of motion, particularly involving the shoulder. Pain is primarily located in the posterior trapezius muscle region and radiates toward the anterior scapular area. Patient denies any recent injury or trauma. He admits to frequently sleeping on his side, which may exacerbate symptoms. Denies numbness, tingling, weakness of the arm, chest pain, shortness of breath, or neck pain. [facility] Medical History (Updated 11/03/25 @ 14:16 by Bev Sarmiento NP) Right shoulder pain Morbid obesity ADHD Surgical History Cohagen teeth extracted Family History Maternal Grandfather Prostate cancer Social History Housing: House Alcohol intake: current Alcohol intake frequency: holidays/special occasions only Patient Tobacco Use Status: Never used Tobacco e-Cigarette/Vaping Use: Never Used service: No Current occupational status: employed Cognitive needs: No Hearing needs: No Vision needs: Yes Review of Systems Const All systems reviewed & are unremarkable except as noted in HPI and below Physical Exam Vital Signs: Last Vital Signs Temp 97.9 F 11/03/25 13:33 Pulse 98 11/03/25 13:33 BP 116/74 11/03/25 13:33 Pulse Ox 98 11/03/25 13:33 Oxygen Delivery Method Room Air 11/03/25 13:33 BMI result Body Mass Index 39.5 Const General: no acute distress Nutritional Appearance: obese Orientation/consciousness: patient oriented x3 Skin General skin exam: no rashes or lesions noted Neuro General: patient oriented x3, gait normal and moves all extremities Extrem Other: RIGHT SHOULDER: Inspection: No visible deformity, swelling, erythema, or ecchymosis of right shoulder or clavicle Palpation: Tenderness over posterior trapezius and periscapular musculature. Mild tenderness along right clavicular region. Range of Motion: Decreased active ROM of right shoulder due to pain. Passive ROM mildly limited secondary to discomfort Strength: Grossly intact but limited by pain. Neurovascular: Sensation intact; distal pulses present and equal. Psych Speech and movement: Normal speech and movement present Assessment & Plan Assessment & Plan (1) Right shoulder pain: Code(s): M25.511 - Pain in right shoulder Qualifiers: Chronicity: acute Qualified Code(s): M25.511 - Pain in right shoulder Plan: Trapezius muscle strain / Periscapular muscle strain. History of rotator cuff tear with possible overuse or flare-up. NSAIDs as needed for pain and inflammation. Topical NSAID and muscle relaxant. Ordered Flexeril. Supportive Care: Rest and activity modification. Avoid sleeping on the affected side. Apply heat to trapezius/periscapular region 2?3 times daily. Gentle stretching once pain improves. Ordered PT. Orders: Orders PT Evaluation and Treatment Today M25.511 - Pain in right shoulder Medications: New cyclobenzaprine 10 mg PO BEDTIME 20 tabs 0RF M25.511 - Pain in right shoulder lidocaine 5% leave on most painful area for up to 12 hrs 1 patch topical DAILY 30 ea 0RF M25.511 - Pain in right shoulder acetaminophen 1,000 mg (2 x 500 mg) PO Q6H PRN 20 caps 0RF pain M25.511 - Pain in right shoulder naproxen 500 mg PO BID 20 tabs 0RF M25.511 - Pain in right shoulder Coding Level of Care Code Est Pt Level 4 (19294) Diagnoses Acute pain of right shoulder M25.511 Chronicity: acute Time Spent (min) 20
--- OUTSIDE RECORDS SUMMARY | 2025-11-03 18:21 | XMS_ITS | Patient Health Record ---
[facility] Jadyn rivera [place] Address [address] [place] [address] Care Team Providers Care Spring Bender Name Role Phone Manjula AUSTIN, Leigh Ann Monae Primary Care Provider Un available Rodolfo Arnett Unavailable [phone] Allergies Allergen (clinical drug ingredient) Drug/Non Drug [...] Provider Speciality Internal M edicine Referred Organization [facility] [place] Referred Provider Rodolfo Arnett Referred Address [address] [facility],[place],[address], Referred Provider Specialty Podiatry Referral Priority Routine Medications Medication SIG (Take, Route, Fr equency, Duration) Notes Start Date End Date Status Cephalexin 500 MG [address] ee times a day; Duration: 10 days Active Work Note-Appointment . . . [facility] Duration: . 04/11/2025 [...] Ordered Date Performed Result Body Sit e [id number]-Gloswvve Plate 04/11/2025 N/A Encounters Encounter Location Date Provider Diagnosis [facility] [place] [address] [place] [address] 04/11/2025 Rodolfo Melquiades Ingrown nail L60.0 ; [...] Treatment Pending Test Test Name Order Date [id number] Plate 04/11/2025 61086 I&D ABSCESS- SIMPLE,SINGLE 021 Insurance Providers Payer Name Payer Address Payer Phone Subscriber Number Group Number Insured Name Patient Relationship to Insured Coverage Start Date Coverage End Date [facility] [address] [place] [address] [phone] [id number] Boo Ayon Self - patient is the insured Medical (General) History Medical History History ICD Code Broken bones Headaches/Migraines Surgical History Surgery Date(Month/Year) wisdom teeth extraction 2008
--- OUTSIDE RECORDS SUMMARY | 2025-11-03 18:21 | XMS_ITS | Clinical Summary ---
Author Organization [facility] Address [address] [place] [id number] Phone Care Team Providers Care Assembler Latches And [place] Name Role Phone Leigh Ann Fair MD [...] topic Medical Devices Not on file [place] [address] [place] [address] [place] [address] [place] [address] [place] [address] Care Teams Assembl[employer] [place] Relationship Specialty Start Date End Date Leigh Ann Fair MD [facility] [place] [address] PCP - General Internal Medicine 08/19/21 Additional Source Comments The information contained in this document represents components of the legal health record. It is not the complete legal health record.[facility]
== END 2025-11-03 14:25 | disposition home or self-care (01) ==
PROVIDERS: PCP Internal Medicine; Visit Provider Nurse Practitioner Family
DX: M25.511 Pain in right shoulder (principal)